=== PATIENT | male | born 1945 | race Caucasian/White ===

== ENCOUNTER → 2017-02-13 | Outpatient (CLI) | payer MEDICARE ==
[~2017-02-13] MED LIST: ALDACTONE25 MG PO; BYSTOLIC10 MG PO; CIPRO500 MG PO; COUMADIN 2.5MG2.5 MG PO; COUMADIN 5MG TAB5 MG PO; HYDRALAZINE HCL50 MG PO; LISINOPRIL20 MG PO; NEURONTIN 300300 MG PO; RANEXA1000 MG PO
== END ==
LOC: KOH-I 11:00
DX: M25.571 Pain in right ankle and joints of right foot (principal)
CPT/HCPCS: 73590; 73610

== ENCOUNTER → 2017-03-18 | Outpatient (CLI) | payer MEDICARE ==
[~2017-03-18] MED LIST changes: +ASPIR 8181 MG PO; +INCRUSE ELLI62.5 MCG INH
== END ==
LOC: KOH-I 15:15
DX: J44.1 Chronic obstructive pulmonary disease with (acute) exacerbation (principal); I51.7 Cardiomegaly
CPT/HCPCS: 71020

== ENCOUNTER → 2017-05-29 | Outpatient (CLI) | payer MEDICARE ==
[~2017-05-29] MED LIST changes: +LISINOPRIL2.5 MG PO
== END ==
LOC: HEART 5 13:54
DX: I25.118 Atherosclerotic heart disease of native coronary artery with other forms of angina pectoris (principal); I48.91 Unspecified atrial fibrillation; R14.0 Abdominal distension (gaseous); J30.9 Allergic rhinitis, unspecified; I71.2 Thoracic aortic aneurysm, without rupture; I20.9 Angina pectoris, unspecified; I35.9 Nonrheumatic aortic valve disorder, unspecified; J44.9 Chronic obstructive pulmonary disease, unspecified
CPT/HCPCS: 71020; 94060; 94729

== ENCOUNTER 2020-12-19 12:35 | Emergency (ER) | payer OTHER ==
[~2020-12-19 12:35] MED LIST changes: +BENADRYL 25MG C25 MG PO; +CARVEDILOL12.5 MG PO; +COREG 25MG TAB25 MG PO; +COUMADIN2.5 MG PO; +DOXYCYCLINE HY100 MG PO; +HYDROCHLOROTHIA25 MG PO; +LASIX40 MG PO; +VENTOLIN HFA 66.7 GM INH
[2020-12-19 14:19] LABS: HEMOGLOBIN 12.2 gm/dl (14.0-17.5); RED BLOOD COUNT 4.05 M/UL (4.20-5.50); WHITE BLOOD COUNT 9.4 K/UL (4.5-11.0)
== END 2020-12-19 19:10 | disposition home or self-care (01) ==
LOC: ER1 12:35
PROVIDERS: Family Medicine
DX: S01.01XA Laceration without foreign body of scalp, initial encounter (principal); S81.812A Laceration without foreign body, left lower leg, initial encounter; M25.511 Pain in right shoulder; M54.6 Pain in thoracic spine; N28.9 Disorder of kidney and ureter, unspecified; I10 Essential (primary) hypertension; E11.9 Type 2 diabetes mellitus without complications; I25.10 Atherosclerotic heart disease of native coronary artery without angina pectoris; J44.9 Chronic obstructive pulmonary disease, unspecified; E66.01 Morbid (severe) obesity due to excess calories; Z95.0 Presence of cardiac pacemaker; Z79.01 Long term (current) use of anticoagulants; V43.52XA Car driver injured in collision with other type car in traffic accident, initial encounter; Y92.410 Unspecified street and highway as the place of occurrence of the external cause; Z23 Encounter for immunization
CPT/HCPCS: 12011; 70450; 71260; 72125; 73030; 73590; 80048; 85025; 90471; 90715; 99284; Q9963

== ENCOUNTER → 2020-12-20 | Outpatient (CLI) | payer OTHER | LOC: KOH-I 16:37 | DX: M25.561 Pain in right knee (principal); M25.562 Pain in left knee; M17.0 Bilateral primary osteoarthritis of knee | CPT/HCPCS: 73562 ==

== ENCOUNTER → 2020-12-27 | Outpatient (CLI) | payer OTHER | LOC: KOH-I 10:46 | DX: M25.512 Pain in left shoulder (principal); M54.42 Lumbago with sciatica, left side; M47.816 Spondylosis without myelopathy or radiculopathy, lumbar region | CPT/HCPCS: 72100; 73030 ==

== ENCOUNTER → 2020-12-28 | Outpatient (CLI) | payer OTHER, MEDICARE | LOC: KOH-I 14:34 | DX: M25.512 Pain in left shoulder (principal); M19.012 Primary osteoarthritis, left shoulder | CPT/HCPCS: 73200 ==

== ENCOUNTER → 2021-02-28 | Outpatient (CLI) | payer MEDICARE | LOC: KOH-I 14:16 | DX: N18.31 Chronic kidney disease, stage 3a (principal); N28.9 Disorder of kidney and ureter, unspecified | CPT/HCPCS: 76775 ==

== ENCOUNTER → 2021-06-01 | Outpatient (CLI) | payer MEDICARE | LOC: ECHO 08:20 | DX: I48.91 Unspecified atrial fibrillation (principal); I50.30 Unspecified diastolic (congestive) heart failure; I27.20 Pulmonary hypertension, unspecified; I08.2 Rheumatic disorders of both aortic and tricuspid valves; Z95.0 Presence of cardiac pacemaker | CPT/HCPCS: ECHO; 93306 ==